=== PATIENT | female | born 1985 | race Caucasian/White ===

== ENCOUNTER 2016-11-17 20:09 | Emergency (ER) | payer OTHER ==
[~2016-11-17] VITALS: Ht 162.6 cm; Wt 64.5 kg
[2016-11-17 20:38] VITALS: Ht 162.6 cm; Wt 64.5 kg
[2016-11-17] MEDS ORDERED: ONDANSETRON (ODT) 4 MG TAB ODT STA (22:28)
--- NOTE | 2016-11-17 22:54 | ERD ---
ER Documentation Chief Complaint Date/Time DATE: 11/17/16 TIME: 22:52 Chief Complaint abdominal pain x 1 day. also c/o painful/blood in urine HPI This is a 31-year-old female presenting to the emergency department complaining of epigastric pain and painful urination for 1 day. Patient states the epigastric pain started when she ate oatmeal. She denies any vomiting or diarrhea. She admits to having nausea. Patient also states she has painful urination with mild blood in the urine. She denies any fevers. Denies taking any medications for this. ROS All systems reviewed and are negative except as per history of present illness. Medications Home Meds Active Scripts Ondansetron (Ondansetron Odt) 4 Mg Tab.rapdis, 4 MG PO Q6H Y for NAUSEA AND/OR VOMITING, #10 TAB Prov:HEMANTH REYES PA-C 11/17/16 Acetaminophen* (Tylenol*) 325 Mg Tablet, 2 TAB PO Q4 Y for PAIN AND OR ELEVATED TEMP, #20 TAB Prov:HEMANTH REYES PA-C 11/17/16 Nitrofurantoin Monohyd Macrocr* (Macrobid*) 100 Mg Capsr, 100 MG PO BID for 5 Days, CAP Prov:HEMANTH REYES PA-C 11/17/16 Allergies Allergies: Coded Allergies: Penicillins (Verified Allergy, Intermediate, rash, 11/17/16) No Known Drug Allergy (Verified Allergy, Mild, 11/17/16) PMhx/Soc History of Surgery: No Anesthesia Reaction: No Hx Neurological Disorder: No Hx Respiratory Disorders: No Hx Cardiac Disorders: No Hx Psychiatric Problems: No Hx Miscellaneous Medical Probl: Yes (depression/anxiety) Hx Alcohol Use: No Hx Substance Use: No Hx Tobacco Use: No Smoking Status: Never smoker Physical Exam Vitals Vital Signs Date Time Temp Pulse Resp B/P Pulse Ox O2 Delivery O2 Flow Rate FiO2 11/17/16 20:38 98.3 77 20 119/58 97 Physical Exam GENERAL: well-developed/well-nourished, in no apparent distress, non-toxic appearing HENT: NC/AT, moist mucous membranes EYES: Conjunctiva normal NECK: Supple, no lymphadenopathy PULM: CTA bilaterally, no rales, rhonchi, or wheezing heard CV: Normal S1S2, RRR, good capillary refill GI: Soft, non-distended, tender to palpation suprapubic region. Mild tenderness palpation in epigastric region Normal bowel sounds, no masses or organomegaly felt on exam No gross peritonitis, no bruits Negative Rovsing, negative Rider, negative McBurney's point, Negative CVAT BACK: No masses EXT: No clubbing, cyanosis, or edema NEURO: Alert and Orientated SKIN: Intact, normal turgor PSYCH: Normal mood and mentation Results 24 hrs Laboratory Tests Test 11/17/16 23:06 Bedside Urine Blood 2+ Bedside Urine Glucose (UA) Negative Bedside Urine Ketones (LAB) Negative Bedside Urine Leukocyte Esterase (L Trace Bedside Urine Nitrite (LAB) Negative Bedside Urine Protein (LAB) 1+ Bedside Urine pH (LAB) 6.0 Current Medications Medications (Trade) Dose Ordered Sig/Adrianna Route PRN Reason Start Time Stop Time Status Last Admin Dose Admin Ondansetron HCl (Zofran Odt) 4 mg ONCE STAT ODT 11/17/16 22:28 11/17/16 22:30 DC 11/17/16 22:40 Procedures/MDM This is a 31-year-old female presenting to the emergency department complaining of epigastric pain and nausea status post eating oatmeal this morning and dysuria that started today. On examination patient appeared well, she had stable vital signs. She was afebrile. Her abdominal examination was unremarkable. Urine test is negative. Urine dipstick showed trace leukocyte esterase, coupled with her symptoms patient likely has a urinary tract infection will be treated with Macrobid outpatient. In the ED patient was given Zofran for the nausea, I will want to go reassessed the patient and she states that she feels a little bit better but she still has pain, I discussed to do additional testing with her however patient states that she feels anxious because there is a lot of people in the waiting room and wants to go home. Patient appears well I will low suspicion for cholecystitis, pancreatitis, appendicitis or other acute abdomen conditions. I discussed with her since she wants to go home to return tomorrow if she still continues to have pain or sooner for any worsening signs or symptoms. Prescription for Zofran, Tylenol and Macrobid was provided. Patient understands and agrees with this plan Departure Diagnosis: Primary Impression: Dysuria Additional Impression: Epigastric pain Condition: Stable HEMANTH REYES PA-C Nov 17, 2016 22:53
[2016-11-17 23:03] LABS: URINE BLOOD (Dip) POC 2+ (NEGATIVE)
[2016-11-17] MEDS ORDERED: NITR-58 PO (23:12)
[2016-11-17] MEDS ORDERED: ONDA4TAB14 PO (23:12)
[2016-11-17] MEDS ORDERED: ACET325T33 PO (23:12)
[2016-11-17 23:28] VITALS: BP 120/60; PULSE 68; RESP 20; TEMP 98.4
== END 2016-11-17 23:28 | disposition home or self-care (01) ==
LOC: FTE 20:09
DX: R30.0 Dysuria (principal); R11.0 Nausea
CPT/HCPCS: 81003; Z7502; Z7610; 99284